=== PATIENT | female | born 1955 | race Caucasian/White ===

== ENCOUNTER 2020-03-09 10:21 | Outpatient (CLI) | payer MEDICARE, MEDICAID, SELFPAY ==
--- NOTE | ~2020-03-09 | CT_ITS ---
EXAMINATION: CT thoracic spine wo con EXAM DATE: 03/09/2020 10:56 INDICATION: Back pain. Posterior rib pain. Frequent falls. TECHNIQUE: Spiral CT thoracic spine wo con was performed thoracic spine Axial, coronal and sagittal images were reviewed. The dose-length product (DLP) for this examination was 1155.24 mGy-cm. The ex posure was tailored according to patient size (auto mA exposure control), and iterative reconstructio n (ASIR) was used as additional dose reduction technique. There is no prior study for comparison. FINDINGS: There are old right 8th and 9th rib fractures posteriorly. There are multiple mid and lower thoracic compression fractures without acute fracture line identified; they appear chronic as follow s. Difficult to exclude acute component to any of them. T6: Mild to moderate at the superior endplate. T8: mild to moderate anterior wedging. T9: moderate to severe anterior wedging. T11: Moderate to severe central compression. L1: Mild to moderate at superior endplate. There is no retropulsion. There is moderate mid and lower thoracic disc disease with vacuum disc phen omenon at these levels. No evidence of central canal stenosis. There is mild thoracic facet arthropat hy. Some moderate-sized bridging endplate osteophytes. There is up to moderate thoracic neural forami nal stenosis. IMPRESSION: 1. Multiple thoracolumbar compression fractures, appear chronic but difficult to exclude acute compo nent, refracture to any of them. 2. Moderate mid and lower thoracic disc disease. 3. Mild facet arthropathy. Reviewed, dictated and finalized at location A. IMPRESSION: 1. Multiple thoracolumbar compression fractures, appear chronic but difficult to exclude acute component, refracture to any of them. 2. Moderate mid and lower thoracic disc disease. 3. Mild facet arthropathy.
== END 2020-03-09 10:22 | disposition home or self-care (01) ==
PROVIDERS: PCP Internal Medicine; Visit Provider Internal Medicine
DX: M54.9 Dorsalgia, unspecified (principal)
CPT/HCPCS: 72128

== ENCOUNTER 2020-04-28 08:32 | Outpatient (CLI) | payer MEDICARE, SELFPAY ==
[2020-04-28 08:53] LABS: Basophils Absolute Auto 0.03 K/mm3 (0.00-0.10); Basophils Percent Auto 0.6 % (0.0-1.0); Eosinophils Absolute Auto 0.07 K/mm3 (0.02-0.50); Eosinophils Percent Auto 1.4 % (1.0-6.0); Hematocrit 41.2 % (35.0-49.0); Hemoglobin 13.1 g/dL (12.0-15.0); Immature Granulocyte Absolute 0.01 K/mm3 (0.00-0.00); Immature Granulocyte Percent A 0.2 % (0.0-0.0); Lymphocytes Absolute Auto 1.95 K/mm3 (1.10-4.50); Lymphocytes Percent Auto 39.2 % (18.0-42.0); Mean Corpuscular HGB Conc 31.8 g/dL (32.0-36.0); Mean Corpuscular Hemoglobin 30.5 pg (27.0-31.0); Mean Corpuscular Volume 95.8 fL (78.0-102.0); Mean Platelet Volume 10.3 fl (9.2-11.8); Monocytes Absolute Auto 0.45 K/mm3 (0.10-0.90); Neutrophils Absolute Auto 2.5 K/mm3 (1.7-7.2); Neutrophils Percent Auto 49.6 % (50.0-70.0); Platelet Count Result 228 K/mm3 (150-420); Red Cell Distribution Width 13.6 % (11.6-14.4)
[2020-04-28 10:10] LABS: Alanine Aminotransferase 131 U/L (14-59); Albumin Level 4.1 g/dL (3.4-5.0); Alkaline Phosphatase 153 U/L (46-116); Anion Gap 6 mmol/L (8-16); Aspartate Amino Transferase 80 U/L (15-37); Bilirubin Direct 0.1 mg/dL (0-0.2); Bilirubin,Total 0.4 mg/dL (0.00-1.00); Blood Urea Nitrogen 12 mg/dL (7-18); Calcium 8.9 mg/dL (8.5-10.1); Carbon Dioxide 28 mmol/L (21-32); Chloride 105 mmol/L (98-108); Cholesterol 175 mg/dL (0-200); Estimated Glomerular Filt Rate > 60; Glucose 84 mg/dL (70-99); HDL Direct 56 mg/dL (40-60); LDL Cholesterol Calculated 93 mg/dL (<130); Osmolality Calculated 286 mOsm/kg (285-295); Potassium 3.9 mmol/L (3.5-5.1); Sodium 139 mmol/L (136-145); Total Protein 8.3 g/dL (6.4-8.2); Triglycerides 131 mg/dL (0-150); Vitamin B12 415 pg/mL (193-986)
[2020-05-02 10:42] LABS: Vitamin D 25 Hydroxy 21 ng/mL (30-100)
== END 2020-04-28 08:33 | disposition home or self-care (01) ==
LOC: CHSLAB 08:37
PROVIDERS: PCP Internal Medicine
DX: R94.5 Abnormal results of liver function studies (principal); Z03.89 Encounter for observation for other suspected diseases and conditions ruled out; Z13.89 Encounter for screening for other disorder; Z79.899 Other long term (current) drug therapy
CPT/HCPCS: 36415; 80053; 80061; 82248; 82306; 82607; 85025

== ENCOUNTER 2021-10-25 09:20 | Emergency (ER) | payer BC, SELFPAY ==
--- NOTE | 2021-10-25 09:38 | ED.ANXIETY ---
HPI - Anxiety General Chief Complaint: Anxiety Stated Complaint: PANIC ATTACKS Time Seen by Provider: 10/25/21 09:40 History of Present Illness HPI narrative: 66-year-old female patient is in the ER accompanied by her daughter with complaints of anxiety and panic attacks. The patient apparently has a chronic history of depression with anxiety and has been under care of a psychiatrist. Currently the patient is taking Zoloft, Cymbalta, gabapentin and also lorazepam 0.5 mg b.i.d. p.r.n.. The patient does admit to smoking weed once in a while but states that that clouds her head. She feels that her anxiety is getting the best of her and she has run out of Ativan at the moment. Patient does have an upcoming appointment with the psychiatrist on the 02 of November and prior to that she has an appointment with her counselor on the 27 of October. Patient denies any homicidal or suicidal thoughts. She states that she feels afraid of the daylight and everything else that goes around her and worries that somebody might come and hurt her at her home. She does live with her daughter. She also states that she drinks alcohol to keep her anxiety under control but does not smoke cigarettes. Patient is denying any constitutional symptoms of headache chest pain or abdominal pain at this time. She does state that she gets diarrhea when she becomes very nervous. No nausea or vomiting is reported at this time. And patient cannot recall any unusual event lately that has caused her anxiety to get the best of her. Related Data Home Medications Medication Instructions Recorded Confirmed duloxetine 30 mg PO BID 10/25/21 10/25/21 gabapentin 100 mg BID 10/25/21 10/25/21 lorazepam 0.5 mg DAILY PRN 10/25/21 10/25/21 sertraline 100 mg BID 10/25/21 10/25/21 Allergies Allergy/AdvReac Type Severity Reaction Status Date / Time No Known Allergies Allergy Verified 10/25/21 09:39 Review of Systems Review of Systems: All systems reviewed & are unremarkable except as noted in HPI and below PMFSH Past Medical History Medical History (Updated 10/25/21 @ 10:08 by Joyce De Jesus MD) Anxiety and depression Social History Social History Substance use type: does not use Exam Narrative: Alert female patient in no acute distress. vital signs are noted to be stable except the blood pressure being 187/95 and the patient appears very anxious. She does not have any prior history of hypertension. Patient is afebrile. SpO2 on room air is 99%. HEENT appears to be atraumatic head. Pupils are midsize and equal and reactive to light. Patient has a good eye contact. The rest of HEENT is negative. Neck is supple. Chest wall is nontender. Patient has mild kyphosis of the thoracic spine noted. Otherwise her lungs are clear bilaterally. Heart tones are regular. No murmurs are heard . Abdomen is benign. Extremities are atraumatic. Skin is warm and dry and color is normal. Patient is alert and oriented x4. Her speech is normal. Gait is steady. Motor and sensory is intact. Patient has a good eye contact but she appears very anxious. Her thought process seems to be normal. She does express some paranoia about the daylight and is very concerned about her panic disorder. Course Course Emergency Course: Patient and the daughter have been counseled about 2 use of Ativan and to stay within the guidelines as directed by the psychiatrist. I also offered the patient to contact her counselor today and see if she can go for a counseling session in the next 24 hours rather than wait another 2 days. She is also going to call her psychiatrist in the hope that she might get an earlier appointment. In the meantime I have offered patient's BuSpar 7.5 mg twice a day and a prescription will be sent to the pharmacy of their choice itself with pharmacy. Discharge Plan Discharge Clinical Impression: Anxiety and depress
[2021-10-25 09:43] VITALS: BP 187/95; PULSE 98; RESP 18; TEMP 36.1; O2SAT 99
[2021-10-25 10:18] VITALS: BP 128/76
== END 2021-10-25 10:20 | disposition home or self-care (01) ==
PROVIDERS: Emergency Provider Emergency Medicine; PCP Internal Medicine
DX: F41.9 Anxiety disorder, unspecified (principal); F32.A Depression, unspecified
CPT/HCPCS: 99283

== ENCOUNTER 2022-07-26 14:56 | Outpatient (CLI) | payer OTHER, SELFPAY ==
--- NOTE | ~2022-07-26 | XR_ITS ---
EXAMINATION: XR ribs LT 2V w CXR 2V INDICATION: Left rib pain, initial encounter TECHNIQUE: PA and lateral views of the chest and 3 views of the left ribs were obtained. COMPARISON: 06/28/2018 FINDINGS: There is a small left pleural effusion. There are airspace opacities of the left lung base. No pneumothorax is identified. The cardiomediastinal silhouette is stable. Suture anchors are noted in left humeral head. There is an anterolateral fracture of the left ninth rib with approximately 7 m m of displacement of the medial rib fragment. There is an anterolateral fracture of the left eighth r ib with mild angulation at the fracture site. There appear to be nondisplaced fractures of the left f ifth through seventh ribs. There is exaggerated kyphosis of the thoracic spine with chronic lower tho racic compression fractures which demonstrate slight interval worsening. An orthopedic screw is noted in the left elbow. IMPRESSION: 1. Displaced fracture of the left ninth rib and left eighth rib fracture with minimal angulation. Pos sible nondisplaced left fifth through seventh rib fractures. 2. Small left pleural effusion with left basilar airspace opacities, atelectasis versus pneumonia. Reviewed, dictated and finalized at location B. UCT GRADER IMPRESSION: 1. Displaced fracture of the left ninth rib and left eighth rib fracture with m inimal angulation. Possible nondisplaced left fifth through seventh rib fractur es. 2. Small left pleural effusion with left basilar airspace opacities, atelectasi s versus pneumonia.
== END 2022-07-26 14:57 | disposition home or self-care (01) ==
LOC: CHSIMG 14:59
PROVIDERS: PCP Internal Medicine; Visit Provider Internal Medicine
DX: S22.42XA Multiple fractures of ribs, left side, initial encounter for closed fracture (principal); J90 Pleural effusion, not elsewhere classified
CPT/HCPCS: 71046; 71100

== ENCOUNTER 2022-08-09 12:03 | Emergency (ER) | payer OTHER, SELFPAY ==
[2022-08-09 12:03] VITALS: BP 189/96; PULSE 98; RESP 18; TEMP 36.6; O2SAT 96
--- NOTE | 2022-08-09 12:13 | ED.GENADULT ---
HPI - General Adult General Chief complaint: Unspecified Stated complaint: pain/broken ribs Time Seen by Provider: 08/09/22 12:10 Source: patient and RN notes reviewed Mode of arrival: ambulatory Limitations: no limitations History of Present Illness HPI narrative: patient states that she fell and broke her ribs on July 30. She went to another facility had x-rays CT scans. She continues to have severe pain in her left ribs. She says that she has multiple rib fractures. On July 26 she bent over felt another pop and had severe pain again. She had repeat x-rays done at that time and was put on Augmentin and a prescription for pain medication from her primary care physician. She continues to have severe pain she took her last [place] at 5:00 a.m. this morning. She has an appointment with her PCP at 2:00 p.m.. She says she needs something for the severe pain until she can see him at 2:00 p.m. today. complaint: Rib pain Onset (ago): day(s) () Location: chest Radiation: non-radiation Severity: severe Quality: aching and dull Pain Consistency: constant and intermittent Relieving factors: rest Exacerbating factors: movement Associated symptoms: denies other symptoms Treatments prior to arrival: other ( Hydrocodone at 5:00 a.m.) Related Data Home Medications Medication Instructions Recorded Confirmed duloxetine 30 mg capsule,delayed 30 mg PO BID 10/25/21 10/25/21 release gabapentin 100 mg capsule 100 mg BID 10/25/21 10/25/21 lorazepam 0.5 mg tablet 0.5 mg DAILY PRN Anxiety 10/25/21 10/25/21 sertraline 100 mg tablet 100 mg BID 10/25/21 10/25/21 aripiprazole 5 mg tablet 5 mg PO DAILY 08/09/22 08/09/22 buspirone 7.5 mg tablet 30 mg PO BID 08/09/22 08/09/22 Allergies Allergy/AdvReac Type Severity Reaction Status Date / Time No Known Allergies Allergy Verified 08/09/22 12:17 Review of Systems Review of Systems: All systems reviewed & are unremarkable except as noted in HPI and below Constitutional: Constitutional: Denies chills and Denies fever(s) Respiratory: Respiratory: Denies chest congestion, Denies cough and Denies dyspnea PMFSH Past Medical History Medical History Anxiety and depression Social History Social History Substance use type: does not use Exam Const: General: no acute distress, alert and ill appearing acutely Nutritional Appearance: well nourished Orientation/consciousness: patient oriented x3 Limitations: no limitations HENMT: Head: normal to inspection Ears: external ears normal Eyes: Conjunctivae: conjunctivae normal Pupils: Equal, round and reactive pupils present EOM: EOMs intact bilaterally Neck: Neck: normal visual inspection Chest: Chest palpation & inspection: tenderness rib left posterior-axillary line involving the 5th rib, involving the 6th rib, involving the 7th rib, involving the 8th rib and involving the 9th rib, left mid-axillary line involving the 5th rib, involving the 6th rib, involving the 7th rib, involving the 8th rib and involving the 9th rib, left anterior-axillary line involving the 8th rib and involving the 9th rib Resp: Effort & Inspection: normal respiratory effort Auscultation: clear to auscultation bilaterally, no rales and no rhonchi Cardio: Rate: regular rate Rhythm: regular rhythm GI: GI Palp: Yes Soft to palpation and No Tenderness to palpation present (GI) Auscultation: normal bowel sounds Back/Spine/Pelvis: Cervical Spine: cervical ROM normal Thoracic/Lumbar Spine: thoraco-lumbar ROM normal Skin: General skin exam: normal color Rashes: no rashes Neuro: General: patient oriented x3, moves all extremities, no focal motor deficits and CN's II-XI intact bilaterally Speech: normal speech Gait exam (Neuro): Normal gait present Extrem: General: normal to inspection and no clubbing, cyanosis or edema Psych: Mental Status: me
[2022-08-09 12:21] VITALS: BP 189/96; PULSE 98; RESP 18; TEMP 36.6; O2SAT 96
[2022-08-09] MEDS: MORPHINE SULFATE (*CRX) 4 MG/ML INJ 6 MG IM (12:28)
[2022-08-09] MEDS: KETOROLAC 30 MG/ML VIAL (*BKC) IM (12:28)
== END 2022-08-09 12:50 | disposition home or self-care (01) ==
LOC: CHSED 12:38
PROVIDERS: Emergency Provider Emergency Medicine; PCP Internal Medicine
DX: S22.42XG Multiple fractures of ribs, left side, subsequent encounter for fracture with delayed healing (principal); F32.A Depression, unspecified; F41.9 Anxiety disorder, unspecified; W19.XXXD Unspecified fall, subsequent encounter
CPT/HCPCS: 96372; 99284; J1885; J2270

== ENCOUNTER 2022-08-09 14:17 | Outpatient (CLI) | payer OTHER, SELFPAY ==
--- NOTE | ~2022-08-09 | XR_ITS ---
AP and oblique views of the left ribs, and PA and lateral chest radiographs Clinical History: Fracture COMPARISON: 07/26/2022 Findings: Fractures the left eighth and ninth ribs are noted, unchanged. Lungs are clear, without foc al consolidation or pleural effusion. Cardiomediastinal contour is within normal limits. Soft tissues are unremarkable. Stable compression fractures of probably T9 and T8. Impression: Stable fractures of the left eighth and ninth ribs. Alignment is unchanged. Stable probable chronic compression fractures of T8 and T9. Clear lungs. Reviewed, dictated and finalized at location . RVENTIONAL TECHNOLOGIST Impression: Stable fractures of the left eighth and ninth ribs. Alignment is unchanged. Stable probable chronic compression fractures of T8 and T9. Clear lungs.
== END 2022-08-09 14:18 | disposition home or self-care (01) ==
LOC: CHSIMG 14:18
PROVIDERS: PCP Internal Medicine; Visit Provider Internal Medicine
DX: S22.42XA Multiple fractures of ribs, left side, initial encounter for closed fracture (principal)
CPT/HCPCS: 71046; 71100

== ENCOUNTER 2023-05-26 11:51 | Outpatient (CLI) | payer OTHER, SELFPAY ==
--- NOTE | ~2023-05-26 | US_ITS ---
EXAMINATION: US venous doppler LE RT DATE: 05/26/2023 12:27 INDICATION: Right lower limb pain TECHNIQUE: [place] scale images without and with compression and Doppler images of the right lower extre mity veins were obtained. COMPARISON: None FINDINGS: The right common femoral vein, profunda femoral vein, femoral vein, popliteal vein, peronea l trunk, posterior tibial veins, and greater saphenous vein are patent. There is a 9 mm x 6 mm fluid collection in the right popliteal fossa. IMPRESSION: 1. Patent right lower extremity veins. No evidence of deep venous thrombosis. 2. Small right Irby's cyst. Reviewed, dictated and finalized at location B. [place] MERCHANDISING COORDINATOR
--- NOTE | ~2023-05-26 | XR_ITS ---
EXAMINATION: XR knee RT 3V DATE: 05/26/2023 12:36 INDICATION: Right popliteal fossa and calf pain TECHNIQUE: Three views of the right knee were obtained. COMPARISON: None. FINDINGS: Bone alignment is normal. There is no acute fracture. There is antegrade intramedullary kristine and interlocking intratrochanteric screw fixation of the right tibia. And old healed fracture of the proximal right fibula is noted. Joint spaces are normal with no erosions. There is a small right kn ee joint effusion. Soft tissues are unremarkable. IMPRESSION: 1. Small knee joint effusion without acute osseous abnormality. Reviewed, dictated and finalized at location B. NING ASSOCIATE
[2023-05-26 12:20] LABS: Basophils Absolute Auto 0.02 K/mm3 (0.00-0.10); Basophils Percent Auto 0.3 % (0.0-1.0); Eosinophils Absolute Auto 0.14 K/mm3 (0.02-0.50); Eosinophils Percent Auto 1.8 % (1.0-6.0); Hematocrit 41.3 % (35.0-42.0); Hemoglobin 13.6 g/dL (11.7-13.8); Immature Granulocyte Absolute 0.02 K/mm3 (0.00-0.00); Immature Granulocyte Percent A 0.3 % (0.0-0.0); Lymphocytes Percent Auto 33.5 % (18.0-42.0); Mean Corpuscular HGB Conc 32.9 g/dL (32.0-36.0); Mean Corpuscular Volume 97.2 fL (78.0-102.0); Monocytes Absolute Auto 0.76 K/mm3 (0.10-0.90); Monocytes Percent Auto 9.8 % (2.0-11.0); Neutrophils Absolute Auto 4.2 K/mm3 (1.7-7.2); Neutrophils Percent Auto 54.3 % (50.0-70.0); Platelet Count Result 271 K/mm3 (150-420); Red Blood Count 4.25 M/mm3 (4.20-5.40); Red Cell Distribution Width 13.8 % (11.6-14.4); White Blood Count 7.8 K/mm3 (4.8-10.8)
[2023-05-26 12:31] LABS: Alanine Aminotransferase 52 U/L (14-59); Albumin Level 4.1 g/dL (3.4-5.0); Alkaline Phosphatase 125 U/L (46-116); Anion Gap 3 mmol/L (8-16); Aspartate Amino Transferase 37 U/L (15-37); Bilirubin,Total 0.4 mg/dL (0.00-1.00); Blood Urea Nitrogen 15 mg/dL (7-18); Calcium 9.3 mg/dL (8.5-10.1); Carbon Dioxide 34 mmol/L (21-32); Chloride 100 mmol/L (98-108); Estimated Glomerular Filt Rate > 60; Glucose 101 mg/dL (70-99); Osmolality Calculated 284 mOsm/kg (285-295); Potassium 4.4 mmol/L (3.5-5.1); Sodium 137 mmol/L (136-145); Total Protein 8.9 g/dL (6.4-8.2); Uric Acid 4.3 mg/dL (2.6-6.0)
[2023-05-26 12:46] LABS: CRP < 0.5 mg/dL (0.0-0.9)
== END 2023-05-26 11:52 | disposition home or self-care (01) ==
LOC: CHSIMG 11:55
PROVIDERS: PCP Internal Medicine; Visit Provider Internal Medicine
DX: M25.561 Pain in right knee (principal); M25.461 Effusion, right knee; M79.89 Other specified soft tissue disorders
CPT/HCPCS: 36415; 73562; 80053; 84550; 85025; 86140; 93971